=== PATIENT | male | born 1990 | race Caucasian/White ===

== ENCOUNTER 2023-07-11 04:24 | Day surgery (SDC) | payer BC ==
[2023-07-06 11:21] VITALS: BMI 32.3
[2023-07-11 11:14] VITALS: TEMP 97.7
[2023-07-11] MEDS ORDERED: MIDAZOLAM HCL 2 MG/2 ML SINGLE DOSE VIAL ONE (14:51)
[2023-07-11] MEDS ORDERED: ONDANSETRON 4 MG/2 ML VIAL ONE (15:01)
[2023-07-11] MEDS ORDERED: PROPOFOL 20 ML ONE (15:03)
[2023-07-11 15:27] VITALS: PULSE 60; RESP 18
[2023-07-11 17:01] VITALS: BP 110/60
== END 2023-07-11 17:00 | disposition home or self-care (01) ==
LOC: JASU-SURG 04:24
PROVIDERS: ATTEND Urology
PROC: 0TF3XZZ Fragmentation in Right Kidney Pelvis, External Approach (ICD-10-PCS; principal; 2023-07-11 13:30)
DX: N20.0 Calculus of kidney (principal)

== ENCOUNTER 2024-03-05 04:22 | Day surgery (SDC) | payer BC ==
[2024-02-29 17:31] VITALS: BMI 32.3
[2024-03-05] MEDS ORDERED: LIDOCAINE HCL 1%, 10 MG/ML (20ML VIAL) ONE (07:17)
[2024-03-05] MEDS ORDERED: BUPIVACAINE HCL/PF 0.5% (5MG/ML) 10 ML VIAL ONE (07:18)
[2024-03-05] MEDS ORDERED: PROPOFOL 20 ML ONE ×3 (07:39→08:45)
[2024-03-05] MEDS ORDERED: MIDAZOLAM HCL 2 MG/2 ML SINGLE DOSE VIAL ONE ×2 (07:40→08:13)
[2024-03-05] MEDS ORDERED: SUCCINYLCHOLINE CHLORIDE 200 MG/10 ML SYRINGE ONE (07:40)
[2024-03-05] MEDS ORDERED: SEVOFLURANE 250 ML BTL ONE (07:40)
[2024-03-05] MEDS ORDERED: LIDOCAINE HCL 2% (20ML MULTI-DOSE VIAL) ONE (07:56)
[2024-03-05] MEDS ORDERED: ceFAZolin SODIUM 1 GM VIAL ONE (08:15)
[2024-03-05] MEDS ORDERED: ONDANSETRON 4 MG/2 ML VIAL ONE (08:15)
[2024-03-05] MEDS: ceFAZolin SODIUM 1 GM VIAL IVPB ONE (08:24)
[2024-03-05] MEDS: BUPIVACAINE HCL/PF 0.5% (5MG/ML) 10 ML VIAL IJ ONE ×2 (08:34)
[2024-03-05] MEDS: LIDOCAINE HCL 2% (50ML VIAL) NR ONE ×2 (08:34)
[2024-03-05] MEDS ORDERED: ONDANSETRON 4 MG/2 ML VIAL IVPUSH PRN (09:11)
[2024-03-05 11:07] VITALS: RESP 16
[2024-03-05 11:53] VITALS: BP 121/80; PULSE 55; TEMP 97.2
== END 2024-03-05 11:56 | disposition home or self-care (01) ==
LOC: JASU-SURG 04:22
PROVIDERS: ATTEND Urology
PROC: 0VTQ0ZZ Resection of Bilateral Vas Deferens, Open Approach (ICD-10-PCS; principal; 2024-03-05 08:15)
DX: Z30.2 Encounter for sterilization (principal)
CPT/HCPCS: 88302-TC; 94760

== ENCOUNTER 2024-09-03 18:39 | Emergency (ER) | payer OTHER, BC ==
[2024-09-03 18:59] VITALS: BP 116/68; PULSE 87; RESP 18; TEMP 98.8; BMI 31.6
[2024-09-03] MEDS ORDERED: ACETAMINOPHEN 500 MG TABLET (FP) ONE (19:51)
[2024-09-03] MEDS ORDERED: IBUPROFEN 600 MG TABLET (FP) PO ONE (19:51)
[2024-09-03] MEDS: ACETAMINOPHEN 500 MG TABLET (FP) PO ONE (19:53)
[2024-09-03] MEDS: IBUPROFEN 600 MG TABLET (FP) PO ONE (19:53)
== END 2024-09-03 20:50 | disposition home or self-care (01) ==
LOC: JERFT 18:39 → JER 18:39 → JERFT 20:50
DX: M54.2 Cervicalgia (principal); R07.89 Other chest pain; M54.6 Pain in thoracic spine; V49.40XA Driver injured in collision with unspecified motor vehicles in traffic accident, initial encounter; Y92.410 Unspecified street and highway as the place of occurrence of the external cause
CPT/HCPCS: 71101-TC-RT-FY; 99283-25